=== PATIENT | female | born 1935 | race Caucasian/White ===

== ENCOUNTER 2016-05-03 16:09 | Emergency (ER) | payer MEDICARE ==
[2016-05-03] MEDS ORDERED: NITROGLYCERIN OINT 1 GM PACKET ONE (16:36)
--- NOTE | 2016-05-03 16:48 | RADIOLOGY REPORT ---
HISTORY: Central chest pain. COMPARISON: May 06, 2013 chest radiograph FINDINGS: The cardiac silhouette remains normal in size. No pneumothorax is seen. There is unchanged minimal elevation of the left hemidiaphragm. Numerous surgical clips are again not ed in the right axilla and overlying the inferior right hemithorax. Mild linear densities are again n oted in the left lung base. Osteopenic bones are again noted. IMPRESSION: Mild left basilar scarring and mild atelectasis. Final Electronic Signature: This report was electronically signed by Homer Walters MD on 017 4:46 PM. willi /
[2016-05-03 19:10] LABS: BLOOD UREA NITROGEN 18 mg/dL (7-17); CHLORIDE 109 mmol/L (98-107); CREATININE 0.9 mg/dL (0.5-1.0); GLUCOSE 81 mg/dL (70-100); MAGNESIUM 2.5 mg/dL (1.6-2.3); POTASSIUM 4.3 mmol/L (3.5-5.1); SODIUM 139 mmol/L (137-145)
[2016-05-03 19:25] LABS: TROPONIN I < 0.012 ng/mL (0.00-0.034)
--- NOTE | 2016-05-03 20:48 | ER NURSING DOCUMENTATION ---
Nurse's Notes [facility] Name:Oanh Mccoy Age:80 yrs Sex:Female :1935 Arrival Date:05/03/2016 Time:16:09 BedTrauma C Private MD:Cyril Snow Diagnosis:Palpitations;Bradycardia-: Asymptomatic Presentation: 05/03 16:56 Acuity: NISA 3 sj 19:08 Presenting complaint: Patient states: feels like aflutter again since early this sj afternoon, and having mild chest pressure mid-sternal. Also some numbness to left side of face which resolved after an hour. Now just tongue burning sensation. Transition of care: Home. Asprin Given Given in ED 324 mg po. 19:08 Method Of Arrival: Private Vehicle Triage Assessment: 19:43 General: Appears in no apparent distress, comfortable, Behavior is appropriate for age, sj cooperative, pleasant. Pain: Denies pain. Neuro: Level of Consciousness is awake, alert, Oriented to person, place, time, event. Cardiovascular: Capillary refill < 3 seconds Heart tones S1 S2 Edema is 2+ to bilateral lower extremities and feet. Respiratory: Airway is patent Respiratory effort is even, unlabored, Respiratory pattern is regular, Breath sounds are clear. Historical: - Allergies: PENICILLINS; Phenobarbital; IODINEIODINE CONTAINING; Clindamycin; Vioxx; NSAIDS; Celebrex; ESTROGENS; Advair Diskus; - Home Meds: 1. Coumadin Oral 2. ProAair 3. Lasix Oral 4. lamotrigine oral 5. pulmicort 6. Diltiazem Oral 7. Metamucil Smooth Texture Oral 8. Ocuvite oral 9. Synthroid Oral 10. flecainide oral - PMHx: cystocele; OSTEOARTHRITIS; hyperkeratosis; IBS; ASTHMA; venous stasis; atrial flutter; PSVT; neuropathy; SLEEP APNEA; tremor; PARKINSONS; hyperlipidemia; HYPOTHYROIDISM; breast cancer; basal cell carcinoma; - PSHx: knee replacement; MASTECTOMY, RIGHT; vein stripping; APPENDECTOMY; TONSILLECTOMY; cataract repair; - Tetanus: < 10 years. - Ebola Screening: : Patient negative for fever greater than or equal to 101.5 degrees Fahrenheit, and additional compatible Ebola Virus Disease symptoms. Patient denies exposure to infectious person. Patient denies travel to an Ebola-affected area in the 21 days before illness onset. No symptoms or risks identified at this time. . - Immunization history: Pneumococcal vaccine is up to date, Flu Vaccine < 1 year. - Social history: Smoking status: Patient states was never smoker of tobacco. Patient/guardian denies using alcohol. Screenin:02 Infectious Disease Risk None. Abuse screen: Denies threats or abuse. Denies injuries sj from another. Nutritional screening: No deficits noted. Assessment: 20:02 See Triage Assessment done by same RN. sj 20:05 Pain: Pain began denies pain, only palpitations. sj Vital Signs: 16:20 BP 154 / 75; Pulse 87; Resp 19; Temp 98.6(TE); Pulse Ox 95% on R/A; Pain 0/10; sj 17:50 BP 140 / 60; Pulse 81; Resp 21; Pulse Ox 95% 2 lpm ; Pain 0/10; sj 19:00 BP 122 / 65; Pulse 76; Resp 20; Pulse Ox 95% on 2 lpm NC; Pain 0/10; sj 19:30 BP 127 / 66; Pulse 67; Resp 16; Pulse Ox 95% ; Pain 0/10; sj 19:52 BP 99 / 83; Pulse 66; Resp 18; Pulse Ox 95% on R/A; sj [place] Coma Score: 19:35 Eye Response: spontaneous(4). Verbal Response: oriented(5). Motor Response: obeys cd commands(6). Total: 15. ED Course: 16:14 Patient arrived in ED. ama 16:15 Cyril Snow MD is Private Physician. ama 16:15 Notified ED Physician of patient's arrival and chief complaint. Dr. Mayer notified. sj 16:19 Eric Mayer MD is Attending Physician. cd 16:30 Port Xray Completed. hz 16:50 EKG done. (by ED staff). Reviewed by Eric Mayer MD Portable x-ray done. sj 16:56 Laine Rubio is Primary Nurse. sj 16:56 Triage completed. sj 17:00 Warm blanket given. sj 19:07 Cyril Snow MD is Referral Physician. cd 20:02 Inserted saline lock: 22 gauge in left forearm. Oxygen Oxygen administration via nasal sj cannula @ 2L/min. 20:02 Valuables Given to family. Patient has correct armband on for positive identification. sj Placed in gown. Bed in low position. Call light in reach. Side rails up X 1. hall monitor on. Pulse ox on. NIBP on. Administered Medications: 16:40 Drug: Aspirin Chewable Tablet 324 mg; Route: PO; sj 20:32 Follow up: Response: No adverse reaction sj 16:40 Drug: Nitroglycerin Ointment 2 % 0.5 inches; Route: Transdermal; Site: anterior chest sj wall; 20:44 Follow up: Response: No adverse reaction sj 16:45 Drug: NS 0.9% 400 ml; Route: IV; Rate: bolus; Site: left forearm; sj 20:45 Follow up: Response: No change in condition sj 20:46 Follow up: IV Status: Completed infusion; IV Intake: 400ml sj Intake: 20:46 IV: 400ml; Total: 400ml. sj Outcome: 19:08 Discharge ordered by . narayan 20:03 Discharged to home via wheelchair, with family. sj 20:03 Condition: stable 20:03 Instructed on discharge instructions, follow up and referral plans. Demonstrated understanding of instructions. 20:47 Patient left the ED. Signatures: Eric Mayer MD MD cd Terriere, Tracy tt Averdick, Andrew, Laine Messina Heather hz
--- NOTE | 2016-05-03 20:48 | ER PHYSICIAN DOCUMENTATION ---
Physician Documentation [facility] Name:Oanh Mccoy Age:80 yrs Sex:Female :1935 Arrival Date:05/03/2016 Time:16:09 BedTrauma C Private MD:Cyril Snow EDjesseEric Disposition: 05/03 19:07 Critical Care: not applicable. cd 20:00 Chart complete. cd Disposition: 05/03/16 19:08 Discharged to Home/Self Care. Impression: Palpitations, Bradycardia - : Asymptomatic. - Condition is Good. - Discharge Instructions: BRADYCARDIA, PALPITATIONS. - Medical Reconciliation form form. - Follow up: Cyril Snow MD; When: 4- 6 days; Reason: Recheck today's complaints, Continuance of care. - Problem is new. - Symptoms are resolved. - Notes: Drink plenty of fluids. Follow up with Dr. Luciano Do, [employer], Friday or Friday for a Holter Monitor and evaluation. Rest HPI: 16:15 This 80 yrs old Female presents to ER via Private Vehicle with complaints of cd Chest Pressure. 16:15 The patient or guardian reports chest pain that is located primarily in the substernal cd area. Onset: acutely, 1 hour(s) ago. The pain does not radiate. There has been no movement of pain. Associated signs and symptoms: Pertinent positives: palpitations, Patient feels like she went into Atrial Flutter again. Occasional bradycardia, but no severe chest pain, SOB, diaphoresis or calf swelling or pain. She did have some minor numbness at the left corner of her mouth, which is gone now. No other Neurologic symptoms. Patient is on Coumadin and is routinely therapeutic due to a stable INR in the 2 - 3 range.. The chest pain is described as aching. Duration: The patient or guardian reports a single episode, that is still ongoing, but improving. Modifying factors: The symptoms are alleviated by nothing. the symptoms are aggravated by nothing. Severity of pain: At its worst the pain was very mild in the emergency department the pain is unchanged. Historical: - Allergies: PENICILLINS; Phenobarbital; IODINEIODINE CONTAINING; Clindamycin; Vioxx; NSAIDS; Celebrex; ESTROGENS; Advair Diskus; - Home Meds: 1. Coumadin Oral 2. ProAair 3. Lasix Oral 4. lamotrigine oral 5. pulmicort 6. Diltiazem Oral 7. Metamucil Smooth Texture Oral 8. Ocuvite oral 9. Synthroid Oral 10. flecainide oral - PMHx: cystocele; OSTEOARTHRITIS; hyperkeratosis; IBS; ASTHMA; venous stasis; atrial flutter; PSVT; neuropathy; SLEEP APNEA; tremor; PARKINSONS; hyperlipidemia; HYPOTHYROIDISM; breast cancer; basal cell carcinoma; - PSHx: knee replacement; MASTECTOMY, RIGHT; vein stripping; APPENDECTOMY; TONSILLECTOMY; cataract repair; - Tetanus: < 10 years. - Ebola Screening: : Patient negative for fever greater than or equal to 101.5 degrees Fahrenheit, and additional compatible Ebola Virus Disease symptoms. Patient denies exposure to infectious person. Patient denies travel to an Ebola-affected area in the 21 days before illness onset. No symptoms or risks identified at this time. . - Immunization history: Pneumococcal vaccine is up to date, Flu Vaccine < 1 year. - Social history: Smoking status: Patient states was never smoker of tobacco. Patient/guardian denies using alcohol. ROS: 19:35 Constitutional: Negative for chills, fever, poor PO intake. cd 19:35 Cardiovascular: Positive for chest pain, palpitations, Negative for edema, orthopnea, paroxysmal nocturnal dyspnea. 19:35 Respiratory: Negative for cough, dyspnea on exertion, orthopnea, shortness of breath. 19:35 MS/extremity: Negative for swelling, tenderness. 19:35 All other systems are negative. Exam: 19:35 Eyes: Pupils equal round and reactive to light, extra-ocular motions intact. Lids and cd lashes normal. Conjunctiva and sclera are non-icteric and not injected. Cornea within normal limits. Periorbital areas with no swelling, redness, or edema. ENT: Nares patent. No nasal discharge, no septal abnormalities noted. Tympanic membranes are normal and external auditory canals are clear. Oropharynx with no redness, swelling, or masses, exudates, or evidence of obstruction, uvula midline. Mucous membranes moist. Neck: Trachea midline, no thyromegaly or masses palpated, and no cervical lymphadenopathy. Supple, full range of motion without nuchal rigidity, or vertebral point tenderness. No Meningismus. Abdomen/GI: Soft, non-tender, with normal bowel sounds. No distension or tympany. No guarding or rebound. No evidence of tenderness throughout. Back: No spinal tenderness. No costovertebral tenderness. Full range of motion. Skin: Warm, dry with normal turgor. Normal color with no rashes, no lesions, and no evidence of cellulitis. MS/ Extremity: Pulses equal, no cyanosis. Neurovascular intact. Full, normal range of motion. 19:35 Neuro: Awake and alert, GCS 15, oriented to person, place, time, and situation. cd Cranial nerves II-XII grossly intact. Motor strength 5/5 in all extremities. Sensory grossly intact. Cerebellar exam normal. Normal gait. 19:35 Constitutional: The patient appears in no acute distress, alert, awake, non-diaphoretic, non-toxic, well developed, well nourished. 19:35 Cardiovascular: Rate: normal, Rhythm: regular, Pulses: no pulse deficits are appreciated, Heart sounds: normal, Edema: is not appreciated. 19:35 Respiratory: the patient does not display signs of respiratory distress, Respirations: normal, no acute changes, Breath sounds: are normal, clear throughout. Vital Signs: 16:20 BP 154 / 75; Pulse 87; Resp 19; Temp 98.6(TE); Pulse Ox 95% on R/A; Pain 0/10; sj 17:50 BP 140 / 60; Pulse 81; Resp 21; Pulse Ox 95% 2 lpm ; Pain 0/10; sj 19:00 BP 122 / 65; Pulse 76; Resp 20; Pulse Ox 95% on 2 lpm NC; Pain 0/10; sj 19:30 BP 127 / 66; Pulse 67; Resp 16; Pulse Ox 95% ; Pain 0/10; sj 19:52 BP 99 / 83; Pulse 66; Resp 18; Pulse Ox 95% on R/A; sj [place] Coma Score: 19:35 Eye Response: spontaneous(4). Verbal Response: oriented(5). Motor Response: obeys cd commands(6). Total: 15. MDM: 16:19 Patient medically screened. cd 16:25 Data interpreted: ekg monitor: rate is 72 beats/min, rhythm is normal sinus rhythm, cd regular, with no ectopy, Interpretation: normal rate, normal rhythm, Pulse oximetry: on room air is 95 %. Interpretation: normal. 16:45 Data reviewed: vital signs, nurses notes, old medical records, EKG, and as a result, I cd will continue to observe the patient, administer IV fluids, NS bolus. 19:00 Counseling: I had a detailed discussion with the patient and/or guardian regarding: the cd historical points, exam findings, and any diagnostic results supporting the discharge/admit diagnosis, lab results, radiology results, the need for outpatient follow up, for a recheck, for a referral to a specialist, a technical support internship, to return to the emergency department if symptoms worsen or persist or if there are any questions or concerns that arise at home. Medication response: The patient's symptoms have improved. 19:35 Differential diagnosis: abnormal EKG, acute myocardial infarction, acute pericarditis, cd chest wall pain, Atrial Flutter, Sick Sinus Syndrome. Patient took aspirin in the Emergency Department. Patient did not receive fibrinolytic due to not indicated. 05/03 19:11 Order name: BASIC METABOLIC PANEL; Complete Time: 07:05 EDNC 05/03 19:15 Interpretation: Normal. 05/03 19:11 Order name: MAGNESIUM; Complete Time: 07:05 EDNC 05/03 19:15 Interpretation: Normal. 05/03 19:26 Order name: TROPONIN I; Complete Time: 07:05 EDNC 05/04 07:04 Interpretation: Normal. 05/03 19:35 Order name: INR W/ CAPI DRAW; Complete Time: 07:05 EDMS 05/04 07:04 Interpretation: Abnormal: INR W/ CAPI DRAW 2.4; Patient on Coumadin...in therapeutic cd range. 05/03 16:50 Order name: CHEST; [place] [id number]; Complete Time: 17:47 EDMS 05/04 07:04 Interpretation: Normal Except: See report. 05/03 16:20 Order name: 12-lead EKG; Complete Time: 20:46 cd 05/03 16:20 Order name: Iv Saline Lock; Complete Time: 20:46 cd 05/03 16:20 Order name: Place Patient On Monitor; Complete Time: 20:46 cd 05/03 16:20 Order name: Pulse Ox Continuous; Complete Time: 20:46 cd Dispensed Medications: 16:40 Drug: Aspirin Chewable Tablet 324 mg; Route: PO; sj 20:32 Follow up: Response: No adverse reaction sj 16:40 Drug: Nitroglycerin Ointment 2 % 0.5 inches; Route: Transdermal; Site: anterior chest sj wall; 20:44 Follow up: Response: No adverse reaction 16:45 Drug: NS 0.9% 400 ml; Route: IV; Rate: bolus; Site: left forearm; sj 20:45 Follow up: Response: No change in condition sj 20:46 Follow up: IV Status: Completed infusion; IV Intake: 400ml Signatures: Eric Mayer MD MD cd Janzen, Sarah
== END 2016-05-03 20:48 | disposition home or self-care (01) ==
LOC: ER 16:09
DX: R00.2 Palpitations (principal); R00.1 Bradycardia, unspecified; R94.31 Abnormal electrocardiogram [ECG] [EKG]; Z79.01 Long term (current) use of anticoagulants; I48.92 Unspecified atrial flutter; Z85.3 Personal history of malignant neoplasm of breast; Z79.899 Other long term (current) drug therapy
CPT/HCPCS: 36415; 71010; 80048; 83735; 84484; 85610; 93005; 93010; 96360; 96361; 99285